=== PATIENT | male | born 1995 | race Caucasian/White ===

== ENCOUNTER 2017-10-27 11:16 | Day surgery (SDC) | payer OTHER ==
[2017-10-23 14:24] VITALS: BMI 29.9
[~2017-10-27 11:16] MED LIST: DEXAMETHASONE SOD PHOSPHATE 10 MG/ML 1 ML VIAL IV ONE; HYDROmorphone 0.5 MG/0.5 ML SYRINGE IVP PRN; LACTATED RINGERS 1,000 ML IV SCH; MIDAZOLAM 2 MG/2 ML VIAL IV PRN; ONDANSETRON 4 MG/2 ML VIAL IVP ONE; Pre Op ABX Message 1 EACH MISC MISCELLANE ONE
--- NOTE | 2017-10-27 12:01 | XR ---
EXAMINATION TYPE: XR KUB DATE OF EXAM: 10/27/2017 HISTORY: Pain Comparison: 10/27/2017 Single KUB is submitted for interpretation. Findings: Right renal calculi: None Visualized. Right ureteral calculi: None Visualized. Left renal calculi: None Visualized. Left ureteral calculi: Transverse measurement 6 mm calculus overlying the left L3 transverse process . No additional calculi seen. Pelvic calcifications: None Visualized. Bowel gas pattern is unremarkable. No free air. No mass effects. IMPRESSION: 1. Left ureteral calculus at the L3 level
[2017-10-27 12:03] VITALS: RESP 16; TEMP 97.7
[2017-10-27] MEDS ORDERED: LIDOCAINE 1% 20 ML VIAL (10MG/ML) FOR IV START INTRADERMA ONE (12:10)
[2017-10-27] MEDS ORDERED: PROPOFOL 10 MG/ML 20 ML VIAL IV ONE (13:05)
[2017-10-27] MEDS ORDERED: KETAMINE 10 MG/ML 20 ML VIAL ONE (13:05)
[2017-10-27] MEDS ORDERED: MIDAZOLAM 2 MG/2 ML VIAL ONE (13:05)
[2017-10-27] MEDS ORDERED: fentaNYL (PF) 50 MCG/ML 2 ML AMP ONE (13:05)
--- NOTE | 2017-10-27 13:49 | P.OP ---
Date of Procedure: 10/27/17 Preoperative Diagnosis: Left proximal ureteral calculus Postoperative Diagnosis: Left proximal ureteral calculus Procedure(s) Performed: Extracorporeal shockwave lithotripsy of proximal left ureteral calculus Anesthesia: MAC Surgeon: Joe Gilliland Estimated Blood Loss (ml): 0 Pathology: none sent Condition: stable Disposition: PACU Indications for Procedure: The patient is a 22-year-old male with a history of intermittent left flank pain. Computed tomography scan on 10/15/2017 identified a 7 mm proximal left ureteral calculus. Treatment options were reviewed with Dr. Brown and ESWL has been chosen. Description of Procedure: The patient was taken the operating suite and placed in the supine position on the fluoroscopy table. The proximal left ureteral calculus was localized using biplanar fluoroscopy. Intravenous sedation was given. Lithotripsy was performed using the Dornier compact delta unit. The patient was treated at level 4 at a rate of 80 shocks per minute. After 600 shocks the calculus was no longer identifiable. The patient was given a total of 1275 shocks to ensure adequate fragmentation. Patient tolerated procedure well and left the operative room awake and in satisfactory condition. He will be seen back on at which time a KUB will be obtained.
[2017-10-27 14:10] VITALS: PULSE 72
[2017-10-27 14:23] VITALS: BP 143/91
== END 2017-10-27 15:02 | disposition home or self-care (01) ==
LOC: ORWHC2ENDO 11:16
PROVIDERS: ATTEND Urology
DX: N20.1 Calculus of ureter (principal); Z87.442 Personal history of urinary calculi; F17.210 Nicotine dependence, cigarettes, uncomplicated; Z79.899 Other long term (current) drug therapy
CPT/HCPCS: 74018; 50590; J2250; J1100; J2405; J3010; J2704

== ENCOUNTER → 2019-05-25 | Outpatient (CLI) | payer OTHER ==
--- NOTE | 2019-05-25 19:24 | XR ---
PROCEDURE: XR foot complete RT - 3V DATE AND TIME: 05/25/2019 6:06 PM CLINICAL INDICATION: PHH; S91.331A TECHNIQUE: Department protocol COMPARISON: None FINDINGS: There is no fracture or malalignment. No radiopaque foreign body. The soft tissues are unre markable. IMPRESSION: NO ACUTE PROCESS.
== END | disposition home or self-care (01) ==
LOC: RADXRMAIN 17:37
PROVIDERS: ATTEND Emergency Medicine
DX: S91.331A Puncture wound without foreign body, right foot, initial encounter (principal)

== ENCOUNTER 2020-07-30 15:39 | Emergency (ER) | payer OTHER ==
[2020-07-30 15:43] VITALS: BP 108/71; PULSE 99; RESP 18; TEMP 99.5
--- NOTE | 2020-07-30 15:53 | ED ---
ENT HPI - General Chief complaint: ENT Stated complaint: Work Note Time Seen by Provider: 07/30/20 15:51 Source: patient Mode of arrival: ambulatory Limitations: no limitations - History of Present Illness Initial comments: Patient is 25-year-old male presenting to emergency Department with a chief complaint of a lymph node. Patient reports he noticed a lymph node since and has gradually increased in size. Patient reports he was concerned and made an appointment with his primary care physician but cannot make it yesterday. Patient is also requesting a work note for today he missed yesterday. He denies any chest pain, shortness of breath, cough, rhinorrhea, otalgia or sore throat. Denies any night sweats fevers or chills. - Related Data Home Medications Medication Instructions Recorded Confirmed HYDROcodone/APAP 5-325MG [[place] 1 tab PO Q4HR PRN 10/23/17 10/27/17 5-325] Ondansetron [Zofran] 4 mg PO Q8HR PRN 10/23/17 10/27/17 Previous Rx's Medication Instructions Recorded Tamsulosin [Flomax] 0.4 mg PO DAILY #10 cap 10/27/17 Allergies Allergy/AdvReac Type Severity Reaction Status Date / Time No Known Allergies Allergy Verified 07/30/20 15:43 Review of Systems ROS Statement: Those systems with pertinent positive or pertinent negative responses have been documented in the HPI. ROS Other: All systems not noted in ROS Statement are negative. Past Medical History Additional Past Medical History / Comment(s): renal calculus History of Any Multi-Drug Resistant Organisms: None Reported Past Surgical History: Cholecystectomy Past Anesthesia/Blood Transfusion Reactions: No Reported Reaction Past Psychological History: No Psychological Hx Reported Smoking Status: Vaper Past Alcohol Use History: Occasional Past Drug Use History: Marijuana - Past Family History Mother Family Medical History: No Reported History General Exam Limitations: no limitations General appearance: alert, in no apparent distress Head exam: Present: atraumatic, normocephalic, normal inspection Eye exam: Present: normal appearance, PERRL, EOMI Pupils: Present: normal accommodation ENT exam: Present: normal exam, normal oropharynx (Slightly enlarged left tonsil with no exudates or erythema.), mucous membranes moist, TM's normal bilaterally, normal external ear exam Neck exam: Present: normal inspection, full ROM, lymphadenopathy (Left anterior cervical lymph node) Respiratory exam: Present: normal lung sounds bilaterally. Absent: respiratory distress, wheezes, rales Cardiovascular Exam: Present: regular rate, normal rhythm, normal heart sounds Extremities exam: Present: normal inspection, full ROM, normal capillary refill. Absent: tenderness Back exam: Present: normal inspection, full ROM. Absent: tenderness, CVA tenderness (R), CVA tenderness (L) Neurological exam: Present: alert, oriented X3 Psychiatric exam: Present: normal affect, normal mood Skin exam: Present: warm, dry, intact, normal color Course Vital Signs 07/30/20 15:40 Temperature 99.5 F Pulse Rate 99 Respiratory 18 Rate Blood Pressure 108/71 O2 Sat by Pulse 100 Oximetry Medical Decision Making - Medical Decision Making Patient is 25-year-old male presenting to the emergency department with a chief complaint of lymph node. On physical examination, patient does have an enlarged left anterior cervical lymph node. ENT examination reveals mild, left tonsillar enlargement with no erythema or exudates. He does have any sore throat cough rhinorrhea or otalgia. Patient was advised to follow-up with his primary care physician. Strict return parameters were thoroughly discussed the patient was understanding and agreeable. Case discussed with physician. Disposition Clinical Impression: Enlarged lymph node in neck Disposition: HOME SELF-CARE Condition: Stable Instructions (If sedation given, give patient instructions): Lymphadenopathy (ED) Additional Instructions: Follow-up with her primary care physician. Return to emergency department if symptoms worsen. Is patient prescribed a controlled substance at d/c from ED?: No Referrals: Marcela Pan MD [Primary Care Provider] - 1-2 days Time of Disposition: 16:05
== END 2020-07-30 16:13 | disposition home or self-care (01) ==
LOC: EC 15:39
DX: R59.0 Localized enlarged lymph nodes (principal); J35.1 Hypertrophy of tonsils; F17.290 Nicotine dependence, other tobacco product, uncomplicated
CPT/HCPCS: 99283

== ENCOUNTER → 2020-11-23 | Outpatient (CLI) | payer OTHER ==
[2020-11-23 15:22] LABS: Basophils % (A) 1 %; Eosinophils # (A) 0.1 k/uL (0-0.7); Eosinophils % (A) 2 %; HCT 44.8 % (39.0-53.0); Lymphocytes # (A) 1.6 k/uL (1.0-4.8); Lymphocytes % (A) 32 %; MCH 28.7 pg (25.0-35.0); MCHC 33.5 g/dL (31.0-37.0); MCV 85.6 fL (80.0-100.0); Mean Platelet Volume 9.2; Monocytes # (A) 0.4 k/uL (0-1.0); Monocytes % (A) 8 %; Neutrophils # (A) 2.7 k/uL (1.3-7.7); Neutrophils % (A) 55 %; Platelet Count 128 k/uL (150-450); RBC 5.23 m/uL (4.30-5.90); RDW 12.6 % (11.5-15.5); WBC 4.9 k/uL (3.8-10.6)
[2020-11-23 15:30] LABS: African American GFR (CKD) >90 (>60 ml/min/1.73 sqM); Anion Gap 7 mmol/L; Blood Urea Nitrogen 13 mg/dL (9-20); Carbon Dioxide 31 mmol/L (22-30); Chloride 99 mmol/L (98-107); Non-African American GFR(CKD) >90 (>60 ml/min/1.73 sqM); Potassium 4.7 mmol/L (3.5-5.1); Sodium 137 mmol/L (137-145)
[2020-11-23 15:42] LABS: Amorphous Sediment,Urine Occasional /hpf; Appearance,Urine Cloudy (Clear); Bilirubin,Urine Negative (Negative); Blood,Urine Moderate (Negative); Color,Urine Yellow; Glucose,Urine (UA) Negative (Negative); Ketones,Urine Negative (Negative); Leukocyte Esterase,Urine Negative (Negative); Mucus,Urine Rare /hpf; Nitrite,Urine Negative (Negative); PH, Urine 7.5 (5.0-8.0); Protein,Urine Negative (Negative); RBC,Urine >182 /hpf (0-5); Specific Gravity,Urine 1.014 (1.001-1.035); Urobilinogen,Urine <2.0 mg/dL (<2.0); WBC,Urine 3 /hpf (0-5)
== END | disposition home or self-care (01) ==
LOC: LABPAT 14:26
PROVIDERS: ATTEND Urology
DX: Z01.818 Encounter for other preprocedural examination (principal); N20.1 Calculus of ureter; R31.21 Asymptomatic microscopic hematuria
CPT/HCPCS: 36415; 80051; 81001; 82565; 84520; 85025

== ENCOUNTER 2020-11-27 08:07 | Day surgery (SDC) | payer OTHER ==
[2020-11-23 14:17] VITALS: BMI 23.0
--- NOTE | 2020-11-26 12:37 | P.GSHP ---
History of Present Illness H&P Date: 11/26/20 25 yo male with a several day history of right flank pain Went to the er and a 6 mm mid ureteral stone was identified. The patient was gven multiple treatment options and has chosen eswl right He comes for this procedure The risks , including failure have been discussed. - Constitutional Constitutional: Denies chills, Denies fever - EENT Eyes: denies blurred vision, denies pain Ears, nose, mouth and throat: Denies headache, Denies sore throat - Cardiovascular Cardiovascular: Denies chest pain, Denies shortness of breath - Respiratory Respiratory: Denies cough, Denies 7 - Gastrointestinal Gastrointestinal: Denies abdominal pain, Denies diarrhea, Denies nausea, Denies vomiting - Genitourinary (Female) Genitourinary: Denies dysuria, Denies hematuria - Genitourinary (Male) Genitourinary: Denies dysuria, Denies hematuria - Musculoskeletal Musculoskeletal: Denies myalgias - Integumentary Integumentary: Denies pruritus, Denies rash - Neurological Neurological: Denies numbness, Denies weakness - Psychiatric Psychiatric: Denies anxiety, Denies depression - Endocrine Endocrine: Denies fatigue, Denies weight change Past Medical History Additional Past Medical History / Comment(s): renal calculus History of Any Multi-Drug Resistant Organisms: None Reported Past Surgical History: Cholecystectomy Past Anesthesia/Blood Transfusion Reactions: No Reported Reaction Past Psychological History: No Psychological Hx Reported Smoking Status: Vaper Past Alcohol Use History: Occasional Additional Past Alcohol Use History / Comment(s): vapes Past Drug Use History: Marijuana Additional Drug Use History / Comment(s): occasional marijuana - Past Family History Mother Family Medical History: No Reported History Medications and Allergies Home Medications Medication Instructions Recorded Confirmed Type HYDROcodone/APAP 5-325MG [[place] 1 tab PO Q4HR PRN 10/23/17 11/23/20 History 5-325] Ondansetron [Zofran] 4 mg PO Q8HR PRN 10/23/17 11/23/20 History Tamsulosin [Flomax] 0.4 mg PO DAILY #10 cap 10/27/17 11/23/20 Rx Allergies Allergy/AdvReac Type Severity Reaction Status Date / Time No Known Allergies Allergy Verified 11/23/20 13:56 Surgical - Exam - General mild distress well developed, well nourished - Eyes PERRL - ENT no hearing loss - Neck trachea midline - Respiratory normal expansion, normal respiratory effort - Cardiovascular Rhythm: regular - Abdomen Abdomen: soft - Genitourinary normal penis with no external lesions, testicles present - Integumentary no rash, no growths - Neurologic normal coordination, normal sensation - Musculoskeletal normal gait, normal posture - Psychiatric oriented to time, oriented to person, oriented to place, speech is normal, memory intact Assessment and Plan Assessment: Impression: Right ureteral stone with colic Plan: Right eswl
[~2020-11-27 08:07] MED LIST changes: -DEXAMETHASONE SOD PHOSPHATE 10 MG/ML 1 ML VIAL IV ONE; -HYDROmorphone 0.5 MG/0.5 ML SYRINGE IVP PRN; -MIDAZOLAM 2 MG/2 ML VIAL IV PRN; -ONDANSETRON 4 MG/2 ML VIAL IVP ONE; -Pre Op ABX Message 1 EACH MISC MISCELLANE ONE
--- NOTE | 2020-11-27 08:32 | XR ---
EXAMINATION TYPE: XR KUB DATE OF EXAM: 11/27/2020 COMPARISON: 10/27/2017 INDICATION: Lithotripsy, right side TECHNIQUE: Single view abdomen frontal projection. FINDINGS: There is a normal bowel gas pattern. Psoas margins are normal. No organomegaly is present. There may be a 0.3cm punctate calcification along the left psoas margin at the level of the L3-4 disc level. Right-sided calcifications is not identified. IMPRESSION: 1. There may be a small calcification mid left ureter.
[2020-11-27 08:40] VITALS: TEMP 98.4
[2020-11-27] MEDS ORDERED: LIDOCAINE 1% INJ 10MG/ML (20 ML MDV) ONE (09:24)
[2020-11-27] MEDS ORDERED: KETAMINE 10 MG/ML 20 ML VIAL ONE (09:24)
[2020-11-27] MEDS ORDERED: PROPOFOL 10 MG/ML 20 ML VIAL IV ONE (09:24)
[2020-11-27] MEDS ORDERED: MIDAZOLAM 2 MG/2 ML VIAL ONE (09:24)
[2020-11-27] MEDS ORDERED: fentaNYL (PF) 50 MCG/ML 2 ML AMP ONE (09:24)
[2020-11-27] MEDS ORDERED: IOPAMIDOL-300 50ML BTL INJ ONE ×2 (09:58)
[2020-11-27] MEDS ORDERED: KETOROLAC 15 MG/ML 1 ML VIAL IVP ONE ×3 (11:25→12:14)
[2020-11-27] MEDS ORDERED: KETOROLAC 15 MG/ML 1 ML VIAL ONE (12:12)
[2020-11-27 12:59] VITALS: RESP 18
[2020-11-27 13:00] VITALS: BP 120/76; PULSE 55
--- NOTE | 2020-11-30 22:53 | P.OP ---
Date of Procedure: 11/27/20 Preoperative Diagnosis: right ureteral calculi Postoperative Diagnosis: same Procedure(s) Performed: cystoscopy, right reterograde pyelogram, ESWL Implants: none Anesthesia: TRACEYA Surgeon: Ed Cheney Estimated Blood Loss (ml): 0 Pathology: none sent Condition: stable Disposition: PACU Indications for Procedure: 25 yo male with a several day history of right flank pain Went to the er and a 6 mm mid ureteral stone was identified. The patient was gven multiple treatment options and has chosen eswl right He comes for this procedure The risks , including failure have been discussed. Stone could not be visualized using fluoroscopy, verbal consent for right reterograde pyelogram was obtained from patient prior to inducing sedation. Operative Findings: stone visulaized in mid ureter using reterograde pyelogram Description of Procedure: The patient was taken the operating suite and placed in the supine position on the fluoroscopy table. the stone could not be visualized using fluoroscopy secondary to extensive bowel gas. thus decision was made to proceed with reterograde pyelogram. Verbal consent was obtained from patient prior to inducing sedation. Intravenous sedation was given. A cystoscope fitted with 22 fr sheath was inserted per urethra, brief cystoscopy showed no abnormality in the bladder, the right ureteral orfice was intubated using 6 Fr open ended catheter, Reterograde pyelogram, showed filling defect at the mid ureter with proximal hydorureteronephrosis. Lithotripsy was performed using the Dornier compact delta unit. The patient was treated at level 4 at a rate of 80 shocks per minute. The patient was given a total of 3000 shocks to ensure adequate fragmentation. repeat reterograde pyelogram showed no additional filling defect and fluorscopy showed no radiopaque fragment. there appeared to be good fragmentation of stone. Patient tolerated procedure well and left the operative room awake and in satisfactory condition. .
== END 2020-11-27 12:51 | disposition home or self-care (01) ==
LOC: ORWHC2ENDO 08:07
PROVIDERS: ATTEND Urology
DX: N20.1 Calculus of ureter (principal); Z79.899 Other long term (current) drug therapy; Z90.49 Acquired absence of other specified parts of digestive tract; F17.290 Nicotine dependence, other tobacco product, uncomplicated
CPT/HCPCS: 74018; 50590; C1758; J2250; J2001; J3010; J1885; J2704; Q9967

== ENCOUNTER → 2020-12-05 | Outpatient (CLI) | payer OTHER ==
--- NOTE | 2020-12-05 15:54 | XR ---
EXAMINATION TYPE: XR KUB DATE OF EXAM: 12/05/2020 12:59 PM CLINICAL HISTORY: History of kidney stones and right flank pain. TECHNIQUE: Two supine KUB images of the abdomen are obtained. COMPARISON: Abdominal x-ray 8 days ago. FINDINGS: Suboptimal evaluation right kidney due to overlying colonic fecal debris. No obvious persis tent or new left renal calculus. Surgical clip pelvis redemonstrated. Cholecystectomy clips noted. Ov erall nonobstructive bowel gas pattern. Visualized lung bases clear. Visualized osseous structures in tact. IMPRESSION: As above.
== END | disposition home or self-care (01) ==
LOC: RADXRMAIN 12:35
PROVIDERS: ATTEND Urology
DX: N20.0 Calculus of kidney (principal); Z90.49 Acquired absence of other specified parts of digestive tract; Z96.89 Presence of other specified functional implants
CPT/HCPCS: 74018

== ENCOUNTER 2023-10-10 22:09 | Emergency (ER) | payer OTHER ==
[2023-10-10 22:23] VITALS: RESP 18; TEMP 97.8
[2023-10-10] MEDS ORDERED: SODIUM CHLORIDE 0.9% 1,000 ML IV STA (22:47)
[2023-10-10] MEDS ORDERED: diphenhydrAMINE 50 MG/ML 1 ML VIAL IVP STA (22:47)
[2023-10-10] MEDS ORDERED: AMOXIC-POT CLAV 875-125MG 1 EACH TAB PO STA (22:47)
[2023-10-10] MEDS ORDERED: KETOROLAC 15 MG/ML 1 ML VIAL IVP STA (22:47)
[2023-10-10] MEDS ORDERED: METOCLOPRAMIDE 5 MG/ML 2 ML VIAL IVP STA (22:47)
--- NOTE | 2023-10-10 22:54 | ED ---
General Adult HPI - General Chief complaint: ENT Stated complaint: Headache Time Seen by Provider: 10/10/23 22:27 Source: patient, RN notes reviewed, old records reviewed Mode of arrival: ambulatory Limitations: no limitations - History of Present Illness Initial comments: Patient is a 28-year-old male with no significant past medical history presents emergency department complaint of right ear pain which is causing her headache. States he feels like his ear is plugged in with the fluid in it. Denies any discharge from the ear. Attempted to use a Q-tip today to clear up without any success. Denies any fevers or chills or sick contacts. Denies sore throat, cough. Endorses right-sided headache. Denies any blurry vision. No history of migraines. No other acute complaints at this time. Presents for further evaluation at this time. Attempting to control headache with Motrin at home with minimal improvement. Has been on and off for the last 3 days.Describes a headache as focal located near his right ear. States that since the inside of his ear which is causing the pain. Describes it as throbbing. Not the worse headache of his life. - Related Data Home Medications Medication Instructions Recorded Confirmed HYDROcodone/APAP 5-325MG [[place] 1 tab PO Q4HR PRN 10/23/17 11/27/20 5-325] Ondansetron [Zofran] 4 mg PO Q8HR PRN 10/23/17 11/27/20 Ciprofloxacin HCl [Cipro] 500 mg PO BID 11/27/20 11/27/20 Previous Rx's Medication Instructions Recorded Tamsulosin [Flomax] 0.4 mg PO DAILY #10 cap 10/27/17 Ketorolac [Toradol] 10 mg PO Q6HR #15 tab 11/27/20 Amoxic-Pot Clav 875-125Mg 1 tab PO Q12HR 7 Days #14 tab 10/10/23 [Augmentin 875-125] Ofloxacin 0.3% Otic Soln [Floxin 5 drops BOTH EARS BID 7 Days #5 ml 10/10/23 0.3% Otic Soln] Allergies Allergy/AdvReac Type Severity Reaction Status Date / Time No Known Allergies Allergy Verified 10/10/23 22:14 Review of Systems ROS Statement: Those systems with pertinent positive or pertinent negative responses have been documented in the HPI. Review of Systems: CONST: Denies fever EYES: Denies blurry vision ENT: Endorses right ear pain C/V: Denies Chest pain RESP: Denies shortness of breath GI: Denies abdominal pain : Denies dysuria SKIN: Denies rash. MSK: Denies joint pain. NEURO: Endorses headache ROS Other: All systems not noted in ROS Statement are negative. Past Medical History Additional Past Medical History / Comment(s): renal calculus History of Any Multi-Drug Resistant Organisms: None Reported Past Surgical History: Cholecystectomy Past Anesthesia/Blood Transfusion Reactions: No Reported Reaction Past Psychological History: No Psychological Hx Reported Smoking Status: Vaper Past Alcohol Use History: Occasional Past Drug Use History: Marijuana - Past Family History Mother Family Medical History: No Reported History General Exam - General Exam Comments Initial Comments: General: Appears in no acute distress. HEAD: Normal with no signs of head trauma. EYES: PERRLA, EOMI, conjunctiva normal, no discharge. Pupils 3 mm and equal bilaterally. ENT: Hearing grossly intact, normal oropharynx. Left TM within normal limits. Right TM is erythematous with a small amount of fluid behind it. Patient also has some irritation and erythema of the auditory canal. Ear wax wax present but is not impacted. RESPIRATORY: Clear breath sounds bilaterally. No wheezes, rales, or rhonchi. C/V: Regular rate and rhythm. S1 and S2 auscultated, peripheral pulses 2+ and intact throughout ABD: Abd is soft, nontender, nondistended EXT: Normal range of motion, no obvious deformity SKIN: No rashes or lesions observed on exposed skin. NEURO: Alert and oriented x 4. Cranial nerves II-XII intact. No focal sensory or strength deficits. Limitations: no limitations Course Vital Signs 10/10/23 22:11 Temperature 97.8 F Pulse Rate 78 Respiratory 18 Rate Blood Pressure 128/81 O2 Sat by Pulse 99 Oximetry Medical Decision Making - Medical Decision Making Was pt. sent in by a medical professional or institution (, PA, HAND HOSE CUTTER, urgent care, hospital, or longterm...) When possible be specific @ -No Did you speak to anyone other than the patient for history (EMS, parent, family, police, friend...)? What history was obtained from this source @ -No Did you review nursing and triage notes (agree or disagree)? Why? @ -I reviewed and agree with nursing and triage notes Were old charts reviewed (outside hosp., previous admission, EMS record, old EKG, old radiological studies, urgent care reports/EKG's, longterm records)? Report findings @ -No old charts were reviewed Differential Diagnosis (chest pain, altered mental status, abdominal pain women, abdominal pain men, vaginal bleeding, weakness, fever, dyspnea, syncope, headache, dizziness, GI bleed, back pain, seizure, CVA, palpatations, mental health, musculoskeletal)? @ -Otitis media, otitis externa, migraine, headache, mastoiditis. This list is not all inclusive. EKG interpreted by me (3pts min.). @ -None done X-rays interpreted by me (1pt min.). @ -None done CT interpreted by me (1pt min.). @ -None done U/S interpreted by me (1pt. min.). @ -None done What testing was considered but not performed or refused? (CT, X-rays, U/S, labs)? Why? @ -None What meds were considered but not given or refused? Why? @ -None Did you discuss the management of the patient with other professionals (professionals i.e. , PA, HAND HOSE CUTTER, lab, RT, psych nurse, social media executive, outside plant cable engineer, teacher, control officer manager, oil field caser)? Give summary @ -No Was smoking cessation discussed for >3mins.? @ -No Was critical care preformed (if so, how long)? @ -No Were there social determinants of health that impacted care today? How? (Homelessness, low income, unemployed, alcoholism, drug addiction, transportation, low edu. Level, literacy, decrease access to med. care, retirement, rehab)? @ -No Was there de-escalation of care discussed even if they declined (Discuss DNR or withdrawal of care, Hospice)? DNR status @ -No What co-morbidities impacted this encounter? (DM, HTN, Smoking, COPD, CAD, Canc er, CVA, ARF, Chemo, Hep., AIDS, mental health diagnosis, sleep apnea, morbid obesity)? @ -None Was patient admitted / discharged? Hospital course, mention meds given and route, prescriptions, significant lab abnormalities, going to OR and other pertinent info. @ -Based on the patient's presentation and physical exam, I'm concerned with what appears to be otitis media and possibly otitis externa however the other a Tory canal findings could be secondary to him attempted to clear earwax earlier today. I did discuss this with the patient. No concern for mastoiditis or other infection at this time. He will be started on ofloxacin eardrops as well as Augmentin for otitis media. I did offer him a migraine cocktail as well which she accepted. Vital signs within except for limits. He was in agreement this plan.Discuss mechanisms of clearing earwax that do not involve using a Q- tip including hot showers. Improved following migraine cocktail. He'll be discharged home at this time. I will provide the patient with a prescription for Augmentin, ofloxacin eardrops. I instructed the patient to follow up with their PCP in the next 1-3 days. I provided contact information for follow up with ENT. I explained that the patient should return to the emergency department if they experience any worsening symptoms. Strict return precautions were discussed with the patient. The patient expressed understanding of these instructions. I answered all questions that the patient had. The patient was discharged home in good c ondition with their prescriptions and follow up information. Undiagnosed new problem with uncertain prognosis? @ -No Drug Therapy requiring intensive monitoring for toxicity (Heparin, Nitro, Insulin, Cardizem)? @ -No Were any procedures done? @ -No Diagnosis/symptom? @ -Otitis media, headache Acute, or Chronic, or Acute on Chronic? @ -Acute Uncomplicated (without systemic symptoms) or Complicated (systemic symptoms)? @ -Complicated Side effects of treatment? @ -No Exacerbation, Progression, or Severe Exacerbation? @ -No Poses a threat to life or bodily function? How? (Chest pain, [place], PA, pneumonia, PE, COPD, DKA, ARF, appy, cholecystitis, CVA, Diverticulitis, Homicidal, Suicidal, threat to staff... and all critical care pts) @ -No Disposition Clinical Impression: Otitis media, Headache Disposition: HOME SELF-CARE Condition: Good Instructions (If sedation given, give patient instructions): Ear Infection (ED), Acute Headache (ED) Prescriptions: Amoxic-Pot Clav 875-125Mg [Augmentin 875-125] 1 tab PO Q12HR 7 Days #14 tab Ofloxacin 0.3% Otic Soln [Floxin 0.3% Otic Soln] 5 drops BOTH EARS BID 7 Days #5 ml Is patient prescribed a controlled substance at d/c from ED?: No Referrals: None,Stated [Primary Care Provider] - 1-2 days Alex Sarmiento DO [Doctor of Osteopathic Medicine] - 1-2 days Time of Disposition: 23:25
[2023-10-10 23:53] VITALS: BP 138/92; PULSE 95
== END 2023-10-10 23:44 | disposition home or self-care (01) ==
LOC: EC 22:09
DX: H66.91 Otitis media, unspecified, right ear (principal); F12.90 Cannabis use, unspecified, uncomplicated
CPT/HCPCS: 99283; 96374; 96375 ×2; 96361; J1200; J2765; J1885